=== PATIENT | female | born 1960 | race Caucasian/White ===

== ENCOUNTER 2024-03-17 13:37 | Emergency (ER) | payer MEDICAID, OTHER ==
[~2024-03-17] VITALS: Ht 162.6 cm; Wt 95.0 kg
[2024-03-17 14:27] VITALS: O2SAT 99
[2024-03-17 16:29] LABS: POTASSIUM 4.1 mEq/L (3.5-5.1)
[2024-03-17 16:32] LABS: BASOPHILS % 0.9 % (0.0-2.0); EOSINOPHILS % 3.6 % (0.0-5.0); HEMATOCRIT. 39.2 % (36.0-48.0); HEMOGLOBIN. 12.7 g/dL (12.0-16.0); LYMPHOCYTES % 16.4 % (20.0-50.0); MEAN CORPUSCULAR HEMOGLOBIN 29.9 pg (28.0-32.0); MEAN CORPUSCULAR HGB CONC 32.4 g/dL (31.0-37.0); MEAN CORPUSCULAR VOLUME 92.5 fL (81.0-99.0); MEAN PLATELET VOLUME 8.3 fl (7.4-10.4); MONOCYTES % 5.8 % (2.0-8.0); NEUTROPHILS % 73.3 % (40.0-76.0); PLATELET 383 x1000/uL (130-400); RED BLOOD CELL COUNT 4.23 mill/uL (4.2-5.4); RED CELL DISTRIBUTION WIDTH 19.6 % (11.6-14.6); WHITE BLOOD COUNT 11.9 x1000/uL (4.5-11.0)
[2024-03-17 17:41] LABS: CREATININE 7.2 mg/dL (0.6-1.0)
[2024-03-17 20:00] VITALS: BP 158/78; PULSE 74; RESP 12; TEMP 98.2
== END 2024-03-17 20:50 | disposition home or self-care (01) ==
LOC: ER 13:37 → EDBD 13:37 → EDBEDREQ 15:48 → ER 20:50
DX: I12.0 Hypertensive chronic kidney disease with stage 5 chronic kidney disease or end stage renal disease (principal); M79.603 Pain in arm, unspecified; E11.22 Type 2 diabetes mellitus with diabetic chronic kidney disease; N18.6 End stage renal disease; Z99.2 Dependence on renal dialysis; Z90.49 Acquired absence of other specified parts of digestive tract
CPT/HCPCS: 80048; 85025; 36415; 99283; Z7610 ×3